=== PATIENT | male | born 1990 | race Caucasian/White ===

== ENCOUNTER 2017-06-22 18:38 | Emergency (ER) | payer OTHER ==
[~2017-06-22] VITALS: Ht 180.3 cm; Wt 77.1 kg
[2017-06-22 18:39] VITALS: BP 117/74
[2017-06-22] MEDS ORDERED: MOBIC7.5 MG PO (19:51)
== END 2017-06-22 20:07 | disposition home or self-care (01) ==
LOC: ER 18:38
DX: S86.812A Strain of other muscle(s) and tendon(s) at lower leg level, left leg, initial encounter (principal); W22.8XXA Striking against or struck by other objects, initial encounter; Y93.11 Activity, swimming; Y92.34 Swimming pool (public) as the place of occurrence of the external cause; Y99.8 Other external cause status